=== PATIENT | female | born 1985 | race African-American/Black ===

== ENCOUNTER 2019-05-24 12:15 | Emergency (ER) | payer MEDICAID ==
[~2019-05-24] VITALS: Ht 157.5 cm; Wt 114.0 kg
[2019-05-24] MEDS ORDERED: ketorolac trometh. 30mg/ml inj. IM ONE (13:40)
[2019-05-24] MEDS ORDERED: HYDROcodone/acetaminophen 10/325mg tab PO ONE (13:40)
[2019-05-24] MEDS ORDERED: amox tr/potassium clavulanate 875/125mg TAB PO ONE (13:40)
[2019-05-24] MEDS ORDERED: PENI500T2 PO (13:50)
[2019-05-24] MEDS ORDERED: HYDR-4353 PO (13:50)
[2019-05-24 14:06] VITALS: BP 155/115
== END 2019-05-24 14:14 | disposition home or self-care (01) ==
LOC: ER 12:16
DX: K04.7 Periapical abscess without sinus (principal); I10 Essential (primary) hypertension; E11.9 Type 2 diabetes mellitus without complications; Z79.899 Other long term (current) drug therapy
CPT/HCPCS: 96372; 99283; J1885